=== PATIENT | male | born 1985 | race Hispanic/Latino ===

== ENCOUNTER 2020-07-20 09:54 | Outpatient (CLI) | payer BC | END 2020-07-20 09:55 | disposition home or self-care (01) | LOC: CSHULT 09:54 | PROVIDERS: ATTEND Family Medicine | DX: I82.531 Chronic embolism and thrombosis of right popliteal vein (principal); M25.561 Pain in right knee; M79.604 Pain in right leg; Z79.01 Long term (current) use of anticoagulants ==